=== PATIENT | male | born 1985 | race Hispanic/Latino ===

== ENCOUNTER 2023-03-30 11:42 | Emergency (ER) | payer SELFPAY ==
[2023-03-30] MEDS ORDERED: Lidocaine Viscous Sol 2% 15 ml UD Cup ONE (13:13)
[2023-03-30] MEDS ORDERED: Ondansetron PF 4 MG/2 ML Vial ONE (13:13)
[2023-03-30] MEDS ORDERED: Mag-Al Plus 1200 MG/1200 MG/120 MG/30 ML UDCUP ONE (13:13)
[2023-03-30] MEDS ORDERED: Dicyclomine 20 MG/2 ML VIAL ONE (13:13)
== END 2023-03-30 13:29 | disposition left against medical advice (07) ==
LOC: BURERS 11:42
DX: E86.0 Dehydration (principal); R11.10 Vomiting, unspecified; R19.7 Diarrhea, unspecified
CPT/HCPCS: 96374; J2405